=== PATIENT | female | born 1980 | race Caucasian/White ===

== ENCOUNTER 2016-10-21 14:22 | Emergency (ER) | payer SELFPAY ==
[2016-10-21 14:36] VITALS: BMI 29.1
[2016-10-21] MEDS ORDERED: PANTOPRAZOLE 40 MG TABLET (FP) PO ONE (15:30)
[2016-10-21] MEDS ORDERED: DEXTROSE 5%-LACTATED RINGERS 1,000 ML IV SCH (15:30)
[2016-10-21] MEDS ORDERED: PANTOPRAZOLE SODIUM 40 MG in SODIUM CHLORIDE 100 ML IVPB ONE (15:41)
[2016-10-21 15:59] LABS: PH,URINE 6.5 (5.0-8.0); URINE APPEARANCE CLEAR; URINE BILIRUBIN NEGATIVE (NEGATIVE); URINE BLOOD NEGATIVE (NEGATIVE); URINE COLOR LT. YELLOW; URINE GLUCOSE (UA) NEGATIVE (NEGATIVE); URINE KETONE NEGATIVE (NEGATIVE); URINE LEUK ESTERASE NEGATIVE (NEGATIVE); URINE NITRITE NEGATIVE (NEGATIVE); URINE PROTEIN NEGATIVE (NEGATIVE); URINE UROBILINOGEN 0.2 mg/dL (0.2-1.0)
[2016-10-21 16:00] LABS: BASOPHIL 0.2 % (0-2.0); MCH 30.3 pg (25.7-33.7); MCHC 34.4 g/dl (32.0-36.0); MEAN CELL VOLUME 87.9 fl (80-96); NEUTROPHILS 80.3 % (42.8-82.8); PLATELET COUNT 224 K/MM3 (134-434); RDW 13.2 % (11.6-15.6); WHITE BLOOD COUNT 12.2 K/mm3 (4.0-10.0)
[2016-10-21 16:09] VITALS: TEMP 97.6
[2016-10-21 16:31] LABS: ALBUMIN 2.9 g/dl (3.4-5.0); ALK PHOS 79 U/L (45-117); ANION GAP 9 (8-16); BILIRUBIN,TOTAL 0.2 mg/dL (0.2-1.0); CALCIUM 9.1 mg/dL (8.5-10.1); CO2 24 mmol/L (21-32); CREATININE 0.4 mg/dL (0.55-1.02); GLUCOSE,RANDOM 100 mg/dL (74-106); SGOT/AST 8 U/L (15-37); SGPT/ALT 19 U/L (12-78); TOT PROT 6.5 g/dl (6.4-8.2); URIC ACID 2.8 mg/dL (2.6-7.2)
[2016-10-21] MEDS ORDERED: ceFAZolin 2 GRAM PREMIX BAG IVPB ONE (16:50)
[2016-10-21] MEDS ORDERED: AMPICILLIN - 2 GM in SODIUM CHLORIDE 100 ML IVPB ONE (16:57)
[2016-10-21 17:07] VITALS: BP 137/75; PULSE 82
[2016-10-21] MEDS ORDERED: SIMETHICONE 80 MG TAB.CHEW (FP) PO PRN (17:37)
== END 2016-10-21 18:05 | disposition home or self-care (01) ==
LOC: JER 14:22
PROC: 3E03329 Introduction of Other Anti-infective into Peripheral Vein, Percutaneous Approach (ICD-10-PCS; principal; 2016-10-21)
PROC: 3E0337Z Introduction of Electrolytic and Water Balance Substance into Peripheral Vein, Percutaneous Approach (ICD-10-PCS; 2016-10-21)
DX: O26.893 Other specified pregnancy related conditions, third trimester (principal); R10.13 Epigastric pain; Z3A.32 32 weeks gestation of pregnancy
CPT/HCPCS: 36415; 76705-TC; 76775-TC; 76815; 76817-TC; 80053; 81003; 84550; 85025; 99281-25